=== PATIENT | male | born 1990 | race Caucasian/White ===

== ENCOUNTER 2018-06-28 12:30 | Emergency (ER) | payer SELFPAY ==
[~2018-06-28] VITALS: Ht 182.9 cm; Wt 68.0 kg
--- NOTE | 2018-06-28 13:05 | NUR ---
ED Nurse Note: Patient walked into ED c/o generalized weakness since today this morning, patient reports he feels like he has no energy left. patient is alert awake x4 patient reports he feels sleepy.
--- NOTE | 2018-06-28 13:26 | NUR ---
ED Nurse Note: pt requested to have iv site removed. explained to pt to leave intact in place as ptoential for meds /ivf to be given.
[2018-06-28 13:41] LABS: BASOPHILS % (AUTO) 1.5 % (0.0-2.0); HEMATOCRIT 43.9 % (42.0-52.0); HEMOGLOBIN 15.1 G/DL (14.2-18.0); MEAN CORPUSCULAR VOLUME 84 FL (80-99); MONOCYTES % (AUTO) 8.3 % (1.0-10.0); NEUTROPHILS % (AUTO) 44.1 % (45.0-75.0); PLATELET COUNT 157 K/UL (150-450); RED CELL DISTRIBUTION WIDTH 11.3 % (11.6-14.8); WHITE BLOOD COUNT 4.8 K/UL (4.8-10.8)
--- NOTE | 2018-06-28 13:51 | Emergency Room Report ---
History of Present Illness General Chief Complaint: Generalized Weakness Source: Patient Present Illness HPI Patient presents with an episode of acute weakness Patient reports that he has had similar problems in the past when he becomes acutely weak However this episode was more pronounced Patient denies any chest pain denies any focal weakness however generally reports feeling low on energy Denies any change in medications and eyes any neck pain or photophobia denies any fevers Denies any diarrhea Allergies: Coded Allergies: No Known Allergies (Unverified , 06/28/18) Patient History Past Medical History: see triage record Pertinent Family History: none Reviewed Nursing Documentation: PMH: Agreed; PSxH: Agreed Nursing Documentation-PM Past Medical History: No Stated History Review of Systems All Other Systems: negative except mentioned in HPI Physical Exam Vital Signs Date Time Temp Pulse Resp B/P (MAP) Pulse Ox O2 Delivery O2 Flow Rate FiO2 06/28/18 12:57 97.9 58 18 98 Room Air Sp02 EP Interpretation: reviewed, normal General Appearance: well appearing, no apparent distress Head: normocephalic, atraumatic Eyes: bilateral eye PERRL, bilateral eye EOMI ENT: hearing grossly normal, normal pharynx, TMs + canals normal, uvula midline Neck: full range of motion, supple, no meningismus, no bony tend Respiratory: lungs clear, normal breath sounds, no rhonchi, no respiratory distress, no retraction, no accessory muscle use Cardiovascular #1: normal peripheral pulses, regular rate, rhythm, no edema, no gallop, no JVD, no murmur Gastrointestinal: normal bowel sounds, non tender, soft, no mass, no organomegaly, non-distended, no guarding, no hernia, no pulsatile mass, no rebound Genitourinary: no CVA tenderness Musculoskeletal: normal inspection Neurologic: oriented x3, responsive, bail agent III-XII nml as tested, motor strength/ tone normal, sensory intact Psychiatric: mood/affect normal Skin: normal color, no rash, warm/dry, palpation normal Lymphatic: normal inspection, no adenopathy Medical Decision Making Diagnostic Impression: Primary Impression: Weakness ER Course Multiple differentials including but not limited to thyroid disease, anemia, electrolyte abnormality considered Patient's blood work is at baseline level patient resting comfortably without any acute distress He will require close follow-up for further evaluation such as adrenal testing and other differentials and is otherwise stable for close follow-up Labs Test 06/28/18 13:18 White Blood Count 4.8 K/UL (4.8-10.8) Red Blood Count 5.20 M/UL (4.70-6.10) Hemoglobin 15.1 G/DL (14.2-18.0) Hematocrit 43.9 % (42.0-52.0) Mean Corpuscular Volume 84 FL (80-99) Mean Corpuscular Hemoglobin 29.1 PG (27.0-31.0) Mean Corpuscular Hemoglobin Concent 34.5 G/DL (32.0-36.0) Red Cell Distribution Width 11.3 % (11.6-14.8) Platelet Count 157 K/UL (150-450) Mean Platelet Volume 7.7 FL (6.5-10.1) Neutrophils (%) (Auto) 44.1 % (45.0-75.0) Lymphocytes (%) (Auto) 39.0 % (20.0-45.0) Monocytes (%) (Auto) 8.3 % (1.0-10.0) Eosinophils (%) (Auto) 7.0 % (0.0-3.0) Basophils (%) (Auto) 1.5 % (0.0-2.0) Sodium Level 141 MMOL/L (136-145) Potassium Level 3.7 MMOL/L (3.5-5.1) Chloride Level 105 MMOL/L (98-107) Carbon Dioxide Level 29 MMOL/L (21-32) Anion Gap 7 mmol/L (5-15) Blood Urea Nitrogen 12 mg/dL (7-18) Creatinine 1.0 MG/DL (0.55-1.30) Estimat Glomerular Filtration Rate > 60 mL/min (>60) Glucose Level 99 MG/DL (74-106) Calcium Level 9.7 MG/DL (8.5-10.1) Total Bilirubin 0.4 MG/DL (0.2-1.0) Aspartate Amino Transf (AST/SGOT) 18 U/L (15-37) Alanine Aminotransferase (ALT/SGPT) 26 U/L (12-78) Alkaline Phosphatase 66 U/L (46-116) Total Protein 6.6 G/DL (6.4-8.2) Albumin 3.7 G/DL (3.4-5.0) Globulin 2.9 g/dL Albumin/Globulin Ratio 1.3 (1.0-2.7) Lipase 95 U/L (73-393) Thyroid Stimulating Hormone (TSH) 1.045 uiU/mL (0.358-3.740) Free Thyroxine 1.04 NG/DL (0.76-1.46) Rhythm Strip Diag. Results EP Interpretation: yes Rate: 60 Rhythm: NSR, no PVC's, no ectopy Last Vital Signs Date Time Temp Pulse Resp B/P (MAP) Pulse Ox O2 Delivery O2 Flow Rate FiO2 06/28/18 12:57 97.9 58 18 98 Room Air Status: unchanged Disposition: HOME, SELF-CARE Condition: Stable Additional Instructions: Patient is provided with the discharge instructions notified to follow up with primary doctor in the next 2-3 days otherwise return to the er with any worsening symptoms. Please note that this report is being documented using [employer]AG[employer] technology. This can lead to erroneous entry secondary to incorrect interpretation by the dictating instrument. Latonya Graham DO June 28, 2018 13:51
[2018-06-28 13:52] LABS: ANION GAP 7 mmol/L (5-15); BLOOD UREA NITROGEN 12 mg/dL (7-18); CALCIUM 9.7 MG/DL (8.5-10.1); CARBON DIOXIDE 29 MMOL/L (21-32); CHLORIDE 105 MMOL/L (98-107); POTASSIUM 3.7 MMOL/L (3.5-5.1); SODIUM 141 MMOL/L (136-145)
[2018-06-28 14:04] VITALS: BP 103/54
[2018-06-28 14:05] LABS: ALANINE AMINOTRANSFERASE 26 U/L (12-78); ALBUMIN 3.7 G/DL (3.4-5.0); ALBUMIN/GLOBULIN RATIO 1.3 (1.0-2.7); ALKALINE PHOSPHATASE 66 U/L (46-116); ASPARTATE AMINO TRANSFERASE 18 U/L (15-37); BILIRUBIN,TOTAL 0.4 MG/DL (0.2-1.0)
[2018-06-28 14:17] VITALS: BP 103/54
--- NOTE | 2018-06-28 14:21 | NUR ---
Note justineone in EDM - 06/28/18 at 1422 by FRANK ER DISCHARGE NOTE: Patient is cleared to be discharged per KINJAL Graham, pt is aox4, on room air, with stable vital signs. pt was given dc and prescription instructions, pt was able to verbalize understanding, pt id band and iv site removed without complications. pt is able to ambulate with steady gait. pt took all belongings.
--- NOTE | 2018-06-28 14:22 | NUR ---
ER DISCHARGE NOTE: Patient is cleared to be discharged per ERMD, pt is aox4, on room air, with stable vital signs. pt was given dc instructions, pt was able to verbalize understanding, pt id band and iv site removed without complications. pt is able to ambulate with steady gait. pt took all belongings.
== END 2018-06-28 14:22 | disposition home or self-care (01) ==
LOC: EMR 14:05
DX: R53.1 Weakness (principal)
CPT/HCPCS: 36415; 80053; 83690; 84439; 84443; 85025; 99283